=== PATIENT | female | born 1945 | race Hispanic/Latino ===

== ENCOUNTER 2016-11-05 07:56 | Day surgery (SDC) | payer MEDICARE ==
[2016-11-05] MEDS ORDERED: ECOTRIN PO ONE (08:15)
[2016-11-05] MEDS ORDERED: NACL 0.9% 500 ML 500 ML IV SCH (09:00)
[2016-11-05] MEDS ORDERED: SUBLIMAZE ONE (09:33)
[2016-11-05] MEDS ORDERED: VERSED IV ONE (09:33)
[2016-11-05] MEDS: XYLOCAINE 2% INFILTRATI ONE ×3 (10:05→10:20)
[2016-11-05] MEDS: VERSED ONE ×2 (10:05→10:19)
[2016-11-05] MEDS: CALAN ONE ×2 (10:06→10:20)
[2016-11-05] MEDS: HEPARIN 10,000 UNITS/10 ML ONE ×2 (10:06→10:20)
[2016-11-05] MEDS: NITROGLYCERIN SYRINGE 3 ML ONE ×2 (10:07→10:20)
[2016-11-05] MEDS: HEPARIN/NS 5000 UNIT/500ML(CATH LAB) 1,000 ML IR ONE ×2 (10:07→10:20)
[2016-11-05] MEDS: APRESOLINE ONE ×2 (10:20→10:25)
--- NOTE | 2016-11-05 11:07 | Cardiac Catherization Report ---
LEFT HEART CATHETERIZATION CLINICAL INFORMATION: This is a 71-year-old female with chronic pain issues, hypertension, hyperlipidemia, who has been having recurrent chest pressure with activities for last several months despite being on medical therapy , had a heart catheterization in 2013 revealed hypertensive vessels. Left heart catheterization performed via the right radial artery. Normal Isidoro's test, sterile technique, local anesthesia, 5-[place] radial sheath inserted. Left system was engaged with JL3.5 catheter. FINDINGS: Left main is large and patent, trifurcates into large LAD that is patent from proximally and distally, diagonal 1 is a medium caliber vessel. It is patent. Ramus is a medium to large caliber vessel that is patent. Circumflex and AV groove is a medium to large caliber vessel that is patent. OM1 is a medium caliber vessel, patent with moderate tortuosity of coronary artery noted. RCA engaged with JR4 catheter, is a large dominant vessel, patent from proximally and distally. PDA and PLV are medium caliber vessels that are patent. LV gram done in [place] and [place] view shows normal LV function. LVEDP is 25 mmHg, LV is 204/25, aortic is 198/87. No gradient across the aortic valve on pullback. 5-[place] catheters were taken over a guidewire, 5-[place] radial sheath was discontinued. Radial dressing applied. No hematoma. No bleeding. SUMMARY: Patent coronaries, hypertensive vessels noted. Right dominant system with normal LV function with mildly elevated left end-diastolic pressure. JOB# [id number] HUGH/VINOD
--- NOTE | 2016-11-05 11:31 | Short Stay Summary ---
Short Stay Documentation Date of service: 11/05/16 - History H&P: obtained from office - Allergies and Medications Current Medications: Allergies sulfamethoxazole [From Bactrim] Allergy (Verified 01/18/14 12:12) Nausea trimethoprim [From Bactrim] Allergy (Verified 01/18/14 12:12) Nausea Home Medications Medication Instructions Recorded Confirmed Last Taken Type ALPRAZolam [Xanax] 1 mg PO PRN PRN 01/18/14 11/05/16 11/04/16 History 1mg Levothyroxine [Synthroid] 112 mcg PO QAM 01/18/14 11/05/16 11/04/16 History 125mcg Metoprolol [Lopressor TAB] 25 mg PO DAILY 01/18/14 11/05/16 11/04/16 History 25mg Nitroglycerin [Nitrostat] 0.4 mg SL Q5M PRN 01/18/14 11/05/16 12/25/15 History Omeprazole [PriLOSEC] 40 mg PO QDAY 01/18/14 11/05/16 11/04/16 History 40mg Amitriptyline [Elavil] 50 mg PO QHS 03/28/16 11/05/16 11/04/16 History 50mg Aspirin [Aspirin TAB] 325 mg PO DAILY 03/28/16 11/05/16 11/01/16 History 325mg Cyclobenzaprine [Flexeril] 10 mg PO DAILY 03/28/16 11/05/16 11/04/16 History 10mg Diflunisal [Diflunisal] 500 mg PO DAILY 03/28/16 11/05/16 11/04/16 History 500mg Escitalopram [Lexapro] 10 mg PO DAILY 03/28/16 11/05/16 11/04/16 History 40mg Linagliptin [Tradjenta] 5 mg PO DAILY 03/28/16 11/05/16 11/04/16 History 5mg Lisinopril [Zestril TAB] 20 mg PO BID 03/28/16 11/05/16 11/04/16 History 20mg Lovastatin [Altoprev] 40 mg PO QPM 03/28/16 11/05/16 11/04/16 History 40mg Calcium Carb/D3/Magnesium/Zinc [Sv 1 tab PO DAILY 0211/05/16 11/03/16 History Jpsdmen-Erz-Kqfm-Vit D Cplt] 1 tab Folic Acid [Folvite] 1 mg PO QDAY 11/05/16 11/05/16 11/03/16 History 1mg Glucosam & Chondroit-Mv & Min3 1 each PO DAILY 11/05/16 11/05/16 11/03/16 History [Glucoten Caplet] 1 tab Methotrexate Sodium [Methotrexate] 3 tab PO QWEEK 11/05/16 11/05/16 10/24/16 History 3 tab Multivit-Min/FA/Lycopen/Lutein 1 tab PO DAILY 11/05/16 11/05/16 11/04/16 History [Centrum Silver Tablet] 1 tab [place]-3S/Dha/Epa/Fish Oil [Fish 3 cap PO DAILY 11/05/16 11/05/16 11/03/16 History Oil 1,200 mg Softgel] 3 cap Oxycodone HCl/Acetaminophen 1 tab PO Q4H 11/05/16 11/05/16 11/04/16 History [OxyCODONE-Acetaminophen 10-325] 1 tab Pregabalin [Lyrica] 75 mg PO DAILY 11/05/16 11/05/16 11/04/16 History 75mg Vit E/Zn/Lut/Lyco/Bilber/Hb261 1 cap PO DAILY 11/05/16 11/05/16 11/03/16 History 1 cap amLODIPine [Norvasc] 5 mg PO DAILY 11/05/16 11/05/16 11/04/16 History 5mg cloNIDine [Catapres] 0.1 mg PO BID 11/05/16 11/05/16 11/04/16 History 0.1mg Active Medications Sodium Chloride (Nacl 0.9% 500 Ml) 500 mls @ 50 mls/hr IV DIRECT PIEDAD Stop: 11/05/16 18:59 Last Admin: 11/05/16 08:49 Dose: 50 mls/hr - Brief post op/procedure progress note Date of procedure: 11/05/16 Pre-op diagnosis: chest pain Post-op diagnosis: same Procedure: see report Anesthesia: local Estimated blood loss: none Pathology: none - Disposition Condition at discharge: Good Disposition: DISCHARGED TO HOME OR SELFCARE - Discharge Diagnoses (1) Chest pain Status: Chronic Qualifiers: Chest pain type: unspecified Qualified Code(s): R07.9 - Chest pain, unspecified (2) Hypertension Status: Chronic Qualifiers: Hypertension type: essential hypertension Qualified Code(s): I10 - Essential (primary) hypertension (3) Obesity (BMI 30-39.9) Status: Chronic Qualifiers: Obesity type: due to excess calories Obesity severity: O (4) SOB (shortness of breath) on exertion Status: Chronic (5) Type II diabetes mellitus Status: Chronic Qualifiers: Diabetes mellitus complication status: without complication Diabetes mellitus complication detail: D Diabetic retinopathy severity: D Proliferative retinopathy type: P Diabetes mellitus macular edema: D Diabetes mellitus longterm insulin use: D Laterality: L Chronic kidney disease stage: C Short Stay Discharge Plan Activity: advance as tolerated Diet: low fat, low cholesterol Wound: keep clean and dry Follow up with: SONAL VANCE PA [Primary Care Provider] - 7 Days
[2016-11-05 13:01] VITALS: BP 146/92
== END 2016-11-05 13:15 | disposition home or self-care (01) ==
LOC: OPU 07:56
PROVIDERS: ATTEND Internal Medicine
DX: I12.9 Hypertensive chronic kidney disease with stage 1 through stage 4 chronic kidney disease, or unspecified chronic kidney disease (principal); E78.5 Hyperlipidemia, unspecified; E03.9 Hypothyroidism, unspecified; E11.22 Type 2 diabetes mellitus with diabetic chronic kidney disease; N18.1 Chronic kidney disease, stage 1; E66.9 Obesity, unspecified; Z68.38 Body mass index [BMI] 38.0-38.9, adult; Z86.73 Personal history of transient ischemic attack (TIA), and cerebral infarction without residual deficits; Z72.89 Other problems related to lifestyle; Z82.49 Family history of ischemic heart disease and other diseases of the circulatory system; Z80.1 Family history of malignant neoplasm of trachea, bronchus and lung; Z90.49 Acquired absence of other specified parts of digestive tract; Z90.710 Acquired absence of both cervix and uterus; Z98.1 Arthrodesis status
CPT/HCPCS: 93005; 93010; 93458; C1894; J0360; J1644; J2250; J7040; J3010; Q9967